=== PATIENT | female | born 2000 | race Hispanic/Latino ===

== ENCOUNTER 2023-08-17 10:07 | Outpatient (CLI) | payer OTHER | END 2023-08-17 10:08 | disposition home or self-care (01) | LOC: CSHULT 10:07 | PROVIDERS: ATTEND Advanced Practice Midwife | DX: Z34.81 Encounter for supervision of other normal pregnancy, first trimester (principal); Z3A.11 11 weeks gestation of pregnancy | CPT/HCPCS: 76801 ==

== ENCOUNTER 2024-02-20 18:00 | Inpatient (IN) | payer MEDICAID, OTHER ==
[2024-02-22 22:11] VITALS: BMI 35.9
[2024-02-22] MEDS ORDERED: Ondansetron PF 4 MG/2 ML Vial IVP PRN (22:11)
[2024-02-22] MEDS ORDERED: Oxytocin 30 units/NS 500 ML 500 ML IV SCH (22:11)
[2024-02-22] MEDS ORDERED: Methylergonovine 0.2 MG/ML VIAL IM PRN (22:11)
[2024-02-22] MEDS ORDERED: Misoprostol 200 MCG TAB PR PRN (22:11)
[2024-02-22] MEDS ORDERED: Carboprost 250 MCG/ML AMP IM PRN (22:11)
[2024-02-22] MEDS ORDERED: fentaNYL 50 mcg/mL 1 mL Vial SLOW IVP PRN (22:11)
[2024-02-22] MEDS ORDERED: Tranexamic Acid 1,000 MG/10 ML VIAL IVP PRN (22:11)
[2024-02-22] MEDS ORDERED: Promethazine HCl 25 MG/ML VIAL IM PRN (22:11)
[2024-02-22] MEDS ORDERED: hydrALAZINE 20 MG/ML VIAL SLOW IVP PRN (22:11)
[2024-02-22] MEDS ORDERED: Lidocaine 1% (PF) 30 ML VIAL SC PRN (22:11)
[2024-02-22] MEDS ORDERED: Diphenoxylate HCl/Atropine Tablet PO PRN ×2 (22:11)
[2024-02-22] MEDS ORDERED: Ibuprofen 800 MG TAB PO PRN (22:11)
[2024-02-22] MEDS: Lactated Ringer's 1,000 ML IV SCH (23:00)
[2024-02-22] MEDS: Misoprostol 100 MCG TAB VAG SCH (23:40)
[2024-02-23 00:06] LABS: Hematocrit 36.2 % (34.9-44.5); Hemoglobin 12.3 g/dL (12.0-15.5); Mean Corpuscular Hemoglobin 30.2 pg (27.0-33.0); Mean Corpuscular Volume 88.9 fL (81.6-98.3); Mean Platelet Volume 13.7 fL (7.4-10.4); Platelet Count 146 10x3/uL (150-450); RBC Distribution Width 14.6 % (11.5-14.5); Red Blood Cell (RBC) Count 4.07 10x6/uL (3.90-5.03); White Blood Cell (WBC) Count 8.8 10x3/uL (3.5-10.5)
[2024-02-23 00:21] LABS: HBsAg Index 0.17 S/CO (0-0.99); Hep B Surf Ag - L&D Non-Reactive S/CO (NonReactive); Syphilis Antibody Nonreactive (Nonreactive); Syphilis Antibody Index 0.02 S/CO (<1.00 Non-Reactive)
[2024-02-23] MEDS: Oxytocin 30 units/NS 500 ML 500 ML IV SCH ×2 (05:38→21:30)
[2024-02-23] MEDS: predniSONE 20 MG TAB PO SCH (07:26)
[2024-02-23] MEDS: fentaNYL 50 mcg/mL 1 mL Vial ONE (17:35)
[2024-02-23] MEDS: fentaNYL/Ropivacaine Epidural 100 ML ONE (18:59)
[2024-02-23] MEDS: CEFAZOLIN 2 GM VIAL ONE (19:39)
[2024-02-23] MEDS ORDERED: Promethazine HCl 25 MG/ML VIAL IM PRN ×2 (19:46→20:25)
[2024-02-23] MEDS ORDERED: Naloxone HCl 0.4 mg/ml Vial IVP PRN ×2 (19:46)
[2024-02-23] MEDS ORDERED: Moisturizing Cream (Eucerin) 113 GM JAR TOP PRN (19:46)
[2024-02-23] MEDS ORDERED: diphenhydrAMINE 50 MG/ML VIAL IVP PRN ×2 (19:46→20:25)
[2024-02-23] MEDS ORDERED: Ondansetron PF 4 MG/2 ML Vial IVP PRN ×3 (19:46→20:25)
[2024-02-23] MEDS ORDERED: Naloxone HCl 0.4 mg/ml Vial IV PRN ×2 (19:46→20:25)
[2024-02-23] MEDS ORDERED: Meperidine HCl/PF 25 MG (1 mL) VIAL SLOW IVP PRN (19:46)
[2024-02-23] MEDS ORDERED: Communication Order-Pharmacy FS SCH (20:00)
[2024-02-23] MEDS ORDERED: diphenhydrAMINE 50 MG/ML VIAL IM PRN (20:25)
[2024-02-23] MEDS ORDERED: HYDROmorphone/PF 10 MG in Sodium Chloride 0.9% 99 ML IV PRN (20:25)
[2024-02-23] MEDS ORDERED: diphenhydrAMINE 25 MG CAP PO PRN (20:25)
[2024-02-23] MEDS ORDERED: HYDROmorphone/PF 10 MG in Sodium Chloride 0.9% 49 ML IVPB PRN (20:30)
[2024-02-23] MEDS ORDERED: Communication Order-Pharmacy FS PRN (20:30)
[2024-02-23 20:33] LABS: Analyzer IN Cardio CS NICU; RapidComm Collect By RN
[2024-02-23 20:34] LABS: Analyzer IN Cardio CS NICU; RapidComm Collect By RN
[2024-02-23] MEDS: fentaNYL 50 mcg/mL 1 mL Vial SLOW IVP PRN (21:30)
[2024-02-23] MEDS: Acetaminophen 500 MG TAB PO PRN (21:59)
[2024-02-24] MEDS ORDERED: Measles/Mumps/Rubella 10 MCG/0.5 ML VIAL SC ONE (00:01)
[2024-02-24] MEDS ORDERED: hydrALAZINE 20 MG/ML VIAL SLOW IVP PRN (00:01)
[2024-02-24] MEDS ORDERED: Promethazine HCl 25 MG/ML VIAL IM PRN (00:01)
[2024-02-24] MEDS ORDERED: Ondansetron PF 4 MG/2 ML Vial IVP PRN (00:01)
[2024-02-24] MEDS ORDERED: Acetaminophen 325 MG TAB PO PRN (00:01)
[2024-02-24] MEDS ORDERED: Bisacodyl 10 MG SUPP PR PRN (00:01)
[2024-02-24] MEDS ORDERED: Simethicone Chewable 80 MG TAB PO PRN (00:01)
[2024-02-24] MEDS ORDERED: diphenhydrAMINE 25 MG CAP PO PRN (00:01)
[2024-02-24] MEDS ORDERED: Lanolin Ointment 7 GM TUBE TOP PRN (00:01)
[2024-02-24] MEDS ORDERED: Oxytocin 30 units/NS 500 ML 500 ML IV SCH (00:01)
[2024-02-24] MEDS: Azithromycin 500 MG VIAL ONE (01:03)
[2024-02-24] MEDS: Hepatitis B Vaccine 10 MCG/0.5 ML SYR ONE (01:04)
[2024-02-24] MEDS: Phytonadione Neonatal 1 MG/0.5 ML AMP ONE (01:04)
[2024-02-24] MEDS: Erythromycin Base 0.5% Oint 1 GM TUBE ONE (01:04)
[2024-02-24] MEDS: Oxytocin 10 UNITS/ML VIAL ONE (01:04)
[2024-02-24] MEDS: Dexmedetomidine 200 MCG/2 ML VIAL ONE (01:05)
[2024-02-24] MEDS: Ketorolac Tromethamine 30 MG (1 mL) VIAL ONE (01:05)
[2024-02-24] MEDS: fentaNYL 50 mcg/mL 1 mL Vial ONE ×2 (01:05→01:06)
[2024-02-24] MEDS: Morphine PF 10 MG/10 ML VIAL ONE (01:05)
[2024-02-24] MEDS: PROPOFOL 20 ML ONE (01:05)
[2024-02-24] MEDS: Dexamethasone 10 MG/ML VIAL ONE (01:05)
[2024-02-24] MEDS: SUCCINYLCHOLINE/SOD CL,ISO/PF 200 MG/10 ML SYRINGE FS ONE (01:05)
[2024-02-24] MEDS: Ondansetron PF 4 MG/2 ML Vial ONE (01:06)
[2024-02-24] MEDS: Boostrix 0.5 ML (Tdap) VIAL (>/=7 yrs of age) IM ONE (01:07)
[2024-02-24] MEDS: Docusate 100 MG CAP PO SCH ×2 (01:07→09:09)
[2024-02-24] MEDS: Ferrous Sulfate 325 MG TAB PO SCH ×2 (01:07→09:09)
[2024-02-24] MEDS: Ketorolac Tromethamine 30 MG (1 mL) VIAL IVP SCH (02:07)
[2024-02-24 04:16] LABS: Hematocrit 32.6 % (34.9-44.5); Hemoglobin 10.7 g/dL (12.0-15.5); Mean Corpuscular HGB CONC 32.8 g/dL (32.0-36.0); Mean Corpuscular Hemoglobin 29.8 pg (27.0-33.0); Mean Corpuscular Volume 90.8 fL (81.6-98.3); Mean Platelet Volume 14.2 fL (7.4-10.4); Platelet Count 147 10x3/uL (150-450); RBC Distribution Width 14.6 % (11.5-14.5); Red Blood Cell (RBC) Count 3.59 10x6/uL (3.90-5.03); White Blood Cell (WBC) Count 14.6 10x3/uL (3.5-10.5)
[2024-02-24] MEDS: Prenatal Vitamin 1 TAB PO SCH (09:08)
[2024-02-24] MEDS ORDERED: Zolpidem Tartrate 5 MG TAB PO PRN (11:23)
[2024-02-24] MEDS ORDERED: HYDROcodone/Acetaminophen 5/325 mg Tablet PO PRN ×2 (11:23)
[2024-02-25] MEDS: Ibuprofen 800 MG TAB PO SCH (05:34)
[2024-02-25 11:40] VITALS: TEMP 97.9
[2024-02-25 15:53] VITALS: BP 116/71
== END 2024-02-25 17:00 | disposition home or self-care (01) | DRG 788 ==
LOC: CSHLD 02-22 19:35 → CSHPP 02-23 23:05
PROVIDERS: ADMIT Family Medicine; ATTEND Family Medicine
PROC: 10D00Z1 Extraction of Products of Conception, Low, Open Approach (ICD-10-PCS; principal; 2024-02-23)
PROC: 10907ZC Drainage of Amniotic Fluid, Therapeutic from Products of Conception, Via Natural or Artificial Opening (ICD-10-PCS; 2024-02-23)
PROC: 10H07YZ Insertion of Other Device into Products of Conception, Via Natural or Artificial Opening (ICD-10-PCS; 2024-02-23)
DX: O99.12 Other diseases of the blood and blood-forming organs and certain disorders involving the immune mechanism complicating childbirth (principal); D69.6 Thrombocytopenia, unspecified; Z3A.39 39 weeks gestation of pregnancy; Z37.0 Single live birth; Z79.82 Long term (current) use of aspirin; O76 Abnormality in fetal heart rate and rhythm complicating labor and delivery; O43.193 Other malformation of placenta, third trimester; O69.1XX0 Labor and delivery complicated by cord around neck, with compression, not applicable or unspecified
CPT/HCPCS: 36415; 51702; 82805; 85027; 86780; 86850; 86900; 86901; 87340; 88307; J1100; J1885; J2274; J2405; J2590; J2704; J3010; J7120; J7512

== ENCOUNTER 2024-03-03 14:37 | Emergency (ER) | payer MEDICAID ==
[2024-03-03 15:37] LABS: #Basophils 0.02 10x3/uL (0.0-0.2); #Eosinophils 0.08 10x3/uL (0.0-0.5); #Monocytes 0.41 10x3/uL (0.0-1.1); #Neutrophils 3.92 10x3/uL (1.5-8.4); %Basophils 0.3 % (0.0-2.0); %Eosinophils 1.3 % (0.0-6.0); %Lymphocytes 27.3 % (18.0-47.0); %Monocytes 6.7 % (0.0-10.0); %Neutrophils 64.1 % (40.0-75.0); Hematocrit 33.2 % (34.9-44.5); Hemoglobin 10.6 g/dL (12.0-15.5); Mean Corpuscular HGB CONC 31.9 g/dL (32.0-36.0); Mean Corpuscular Volume 90.7 fL (81.6-98.3); Mean Platelet Volume 12.3 fL (7.4-10.4); Platelet Count 216 10x3/uL (150-450); RBC Distribution Width 14.4 % (11.5-14.5); Red Blood Cell (RBC) Count 3.66 10x6/uL (3.90-5.03); White Blood Cell (WBC) Count 6.1 10x3/uL (3.5-10.5)
[2024-03-03 15:56] LABS: ALT (SGPT) 16 U/L (8-55); AST (SGOT) 15 U/L (5-34); Alkaline Phosphatase 87 U/L (40-110); Anion Gap 15 mmol/L (10-20); BUN (Urea Nitrogen) 12 mg/dL (7.0-18.7); Bilirubin, Total 0.3 mg/dL (0.2-1.2); Calc. Creatinine Clearance 0 mL/min (70-130); Calcium 8.4 mg/dL (7.8-10.44); Carbon Dioxide 21 mmol/L (22-29); Chloride 111 mmol/L (98-107); Estimated GFR 127; Globulin 2.6 g/dL (2.4-3.5); Glucose 72 mg/dL (70-105); Protein, Total 5.6 g/dL (6.0-8.3); Sodium 143 mmol/L (136-145)
[2024-03-03 16:36] LABS: Bilirubin Neg (Negative); Blood, Urine 250 (Negative); Clarity Cloudy (Clear); Glucose, Urine (Dipstick) Normal (Negative); Ketone, Urine Negative (Negative); Leukocyte 500 (Negative); Nitrite Negative (Negative); Protein, Urine (Dipstick) 100 mg/dl (Neg-Trace); Specific Gravity, Urine 1.015 (1.005-1.030); Urobilinogen Normal mg/dL (Less than 2)
[2024-03-03 17:00] LABS: CAUTI Indications for Culture Pelvic or flank pain; RBC/HPF Greater than 50 HPF (0-3); Squamous Epithelial 0-3 HPF (0-3); WBC/HPF 21-50 HPF (0-3)
[2024-03-03 17:01] LABS: Bacteria/HPF 2+ HPF (None Seen); Mucous/LPF 1+ LPF (<2+)
[2024-03-03 17:03] LABS: Urine Culture Reflex Yes Yes
== END 2024-03-03 17:48 | disposition home or self-care (01) ==
LOC: CSHERS 14:37
DX: O86.00 Infection of obstetric surgical wound, unspecified (principal); N39.0 Urinary tract infection, site not specified
CPT/HCPCS: 36415; 36416; 80053; 81001; 83605; 85025; 87040; 87086; 99283